=== PATIENT | female | born 1965 | race Caucasian/White ===

== ENCOUNTER 2022-05-10 01:36 | Day surgery (SDC) | payer OTHER, SELFPAY ==
[2022-05-03 17:09] VITALS: BMI 20.1
--- NOTE | 2022-05-03 17:22 | SUR.PREOP ---
Report to the Outpatient Waiting Room, entrance under the green pavilion located off [facility], at time _1200_on date 05/10/22. OR Time: 1400. - You and your visitor will be asked a series of questions to screen for COVID 19 for your protection. - Only one visitor is allowed at this time. - The patient visitor is requested to leave or wait in car when not with patient. - A mask is required within the hospital. Patients may have clear liquids (water, carbonated beverages, clear teas, apple juice) until 3 hours prior to surgery with a maximum of 20 ounces. - No food from midnight until time of surgery - Infants may have breast milk until 4 hours before surgery, infant formula 6 hours prior to surgery. before 11am - Children will be allowed to drink immediately following surgery. If applicable, please bring a bottle or sippy cup to assist with drinking. Juice, water, soda, and popsicles are readily available. For infants on formula, please bring formula the day of surgery. Pacifiers are allowed. Take the following medications with a SIP of water the morning of surgery: ___citalopram Medications to discontinue per physician ___aspirin per dr. epps ( 10 days) Date to take last dose Please no make-up, nail kiswahili, hairspray, perfume, deodorant, or body powder the day of surgery. No jewelry (including any body piercings) or valuables the day of surgery, leave them at home. Please take a shower or bath the night before, or the morning of, surgery with an antibacterial soap. Wear comfortable, loose fitting clothing. Children are encouraged to wear pajamas. - Jewelry must be removed prior to entering the operating room. Rings and piercings that are not removed may be cut off. - The hospital will not accept responsibility for valuables. - Please leave all valuables, including medications, at home the day of surgery. If you are going home after surgery, a licensed otr owner operator truck driver must drive you home. - NO public transportation without another adult. - We recommend that an adult stay with you for 24 hours following discharge. - We also recommend that you do not drive, make important decision, drink alcoholic beverages, or take any drugs that were not prescribed by your health care provider for at least 24 hours after your discharge time. For Pediatric surgeries, we recommend two adults accompany the child home (only one inside the building at this time). Follow any additional instructions given to you from your surgeon. If you or anyone in your household have experienced Covid symptoms in the past week, please notify your surgeon or the nurse liaison at the phone number below for possible testing. Telephone instructions given to __patient and asked if any additional questions and then verbalized understanding. Patient advised to call surgeon office or pre surgery nurse liaison [phone] if any additional questions.
[2022-05-10] VITALS (10 sets, daily range): BP systolic 111–124; BP diastolic 58–76; PULSE 72–101; RESP 12–18; TEMP 36.1–37.4; O2SAT 98–100
--- NOTE | ~2022-05-10 | XR_ITS ---
EXAMINATION: XR fluoroscopy no charge DATE: 05/10/2022 16:18 INDICATION: Lumbar disc herniation. TECHNIQUE: 2 intraoperative fluoroscopic views of the lumbar spine were obtained. I was not present. Fluoroscopy time was 10 seconds. COMPARISON: None. FINDINGS: Lateral views of the lumbar spine demonstrate instruments at L4-L5. IMPRESSION: 1. Instruments at L4-L5. Reviewed, dictated and finalized at location A. IMPRESSION: 1. Instruments at L4-L5.
--- NOTE | 2022-05-10 11:42 | ECG_ITS ---
Measurements Intervals [place] Rate: 67 P: 70 SD: 230 QRS: 54 QRSD: 88 T: 58 QT: 409 QTc: 433 Interpretive Statements SINUS RHYTHM WITH FIRST DEGREE AV BLOCK BASELINE ARTIFACT- V4 ABNORMAL ECG Electronically Signed On 05-10-2022 16:17:04 CDT by Adelso Johnson D.O.
[2022-05-10] MEDS: LACTATED RINGERS 1,000 ML 30 ML IV CONT ×2 (12:50→16:37)
--- NOTE | 2022-05-10 13:42 | SUR.PREOP ---
Discussed delay with patient. Disappointed but understands.
--- NOTE | 2022-05-10 13:48 | WPDANESEPPF ---
Anes - Initial Pre Proc Eval Procedure: Operation Date: 05/10/22 14:00 Proposed Procedures p Right L4-5 Far Lateral Microscopic Lumbar Discectomy - Serjio Ferrari MD Date/Time: 05/10/22 13:48 Surgeon: Serjio Ferrari MD Pre Op Diagnosis: lumbar Disc Herniation Patient Data Age: 57 Gender: F Height: 1.68 m Weight: 57.1 kg Last Vital Signs Temp 37.4 C 05/10/22 12:51 Pulse 72 05/10/22 12:51 Resp 16 05/10/22 12:51 BP 124/76 05/10/22 12:51 Pulse Ox 100 05/10/22 12:51 O2 Del Method Room Air 05/10/22 12:51 Allergies Allergy/AdvReac Type Severity Reaction Status Date / Time levofloxacin [From Levaquin] Allergy Severe Hives Verified 05/10/22 12:06 prochlorperazine Allergy Severe Anxiety Verified 05/10/22 12:06 [From Compazine] codeine Allergy Mild Nausea and Verified 05/10/22 12:06 Vomiting iodine AdvReac Unknown Unknown Verified 05/10/22 12:06 Home Medications Medication Instructions Recorded Confirmed Type aspirin 81 mg tablet 81 mg PO DAILY 05/03/22 05/10/22 History citalopram 40 mg tablet 20 tablet PO DAILY 05/03/22 05/10/22 History lisinopril 5 mg tablet 5 tablet PO HS 05/03/22 05/10/22 History Laboratory Tests 05/10/22 12:39 Blood Type A Positive Antibody Screen Negative Patient hx anesthesia problems: post op nausea/vomiting Family hx anesthesia problems: none Results Review: All pre-operative results and documents have been reviewed as part of the pre-operative evaluation. [facility] Past Medical History Medical History Chronic pain syndrome Depression Hypertension Surgical History Surgical History S/P coil embolization of cerebral aneurysm Social History Social History Smoking status: Never smoker Living arrangements: alone Spiritual care concerns: No Anes - Eval Final PreProcedure Day of Procedure 07/21/22 13:48 Patient weight: normal Heart: regular rate and rhythm Lungs: clear to auscultation Airway: Mallampati scale class II Neurological: alert and oriented Last oral intake: >/= 8 hours ASA classification: III Emergent: no Anesthetic plan: proceed Anesthesia type and monitoring: general ETT and standard monitoring Results Review: All pre-operative results and documents have been reviewed as part of the pre-operative evaluation. Informed Consent: The patient's anesthetic plan and its attendant risks and benefits were discussed with the patient/family/POA. Questions were solicited and answers provided to the satisfaction of the patient/family/POA.
--- NOTE | 2022-05-10 14:35 | PM.IMHP ---
H&P: HPI History of Present Illness Date/Time: 05/10/22 14:35 Chief Complaint: Back and leg pain Narrative: Alyssa is a 57-year-old female with back and lower extremity pain related to an L4-5 foraminal disc herniation who presents for decompression. She has not changed appreciably since we last saw her. She continues to have pain down the right lower extremity. She does not have specific muscle group weakness. She has occasional dermatomal numbness. She is not having any new bowel or bladder disturbances. Review of Systems Review of Systems: Patient denies shortness of breath, cough, fever, chills, nausea, vomiting, weight loss, weight gain, urinary or bowel disturbance, chest pain. She has back and leg pain and stiffness as above. She is otherwise negative on 12 systems except as noted elsewhere. [facility] Past Medical History Medical History Chronic pain syndrome Depression Hypertension Surgical History Surgical History S/P coil embolization of cerebral aneurysm Social History Social History Smoking status: Never smoker Living arrangements: alone Spiritual care concerns: No Meds Home Medications and Allergies Home Medications Medication Instructions Recorded Confirmed Type aspirin 81 mg tablet 81 mg PO DAILY 05/03/22 05/10/22 History citalopram 40 mg tablet 20 tablet PO DAILY 05/03/22 05/10/22 History lisinopril 5 mg tablet 5 tablet PO HS 05/03/22 05/10/22 History Allergies Allergy/AdvReac Type Severity Reaction Status Date / Time levofloxacin [From Levaquin] Allergy Severe Hives Verified 05/10/22 12:06 prochlorperazine Allergy Severe Anxiety Verified 05/10/22 12:06 [From Compazine] codeine Allergy Mild Nausea and Verified 05/10/22 12:06 Vomiting iodine AdvReac Unknown Unknown Verified 05/10/22 12:06 Vital Signs Vital Signs - 24 hr 05/10/22 12:51 Temperature 99.3 F Pulse Rate 72 Respiratory Rate 16 Blood Pressure 124/76 Pulse Oximetry 100 Oxygen Delivery Room Air Exam Narrative: The patient is a normally developed, normal appearing healthy female supine in the hospital bed in no acute distress. She is awake, alert, oriented x3, with good fund of knowledge, recall of events and fluent speech. Her face is symmetrical, her tongue is midline, her pupils are equal and reactive to light, her extraocular movements are intact. There is no upper extremity drift, dysmetria or dyspraxia. Strength is 5/5 in all muscle groups of the bilateral lower extremities to direct confrontation the blink position. Sensation is intact to light touch throughout the lower extremities. Clear to auscultation Regular rate and rhythm Assessment and Plan Assessment and plan (1) Lumbar disc herniation: Code(s): M51.26 - Other intervertebral disc displacement, lumbar region Status: Acute Plan Alyssa is a 57-year-old female with a right L4 radiculopathy related to a foraminal disc herniation at L4-5 on the right. She presents for a right L4-5 far-lateral microscopic lumbar diskectomy. I described to her again this operation, its risks, potential benefits, the operative and postoperative course in detail and answered all of her questions personally. She indicates an understanding and elects to proceed with an operation.
--- NOTE | 2022-05-10 14:38 | WPDHPUPDATE1 ---
History and Physical Update Update Date/Time: 05/10/22 14:38 History and Physical has been reviewed, including an updated exam of the patient. There are NO changes in the patient's condition. Risks, benefits, and alternatives have been discussed and questions answered. Patient agrees to proceed with procedure.
[2022-05-10] MEDS: SCOPOLAMINE 1.5 MG PATCH TRANSDERM (14:52)
[2022-05-10] MEDS: ceFAZolin 2 GM/D5W 50 ML 2 GM/50 ML BAG IVPB (14:55)
[2022-05-10] MEDS: LIDO 1%/EPINEPHRINE 1:100,000 20 ML VIAL 10 ML INFILTRATE (15:38)
--- NOTE | 2022-05-10 16:26 | W.PM.PROC2 ---
Procedure Note - Detailed Date of Procedure 05/10/22 Pre-op Diagnosis lumbar Disc Herniation Post-op Diagnosis Same Procedure Performed Left L4-5 far lateral microscopic lumbar diskectomy Surgeon Serjio Ferrari MD Immigration Attorney Paul Anesthesia General Indications Alyssa is a 57-year-old female with left lower extremity pain related to herniated disc in the foramen at L4-5 on the left who presents for decompression. Findings Herniated disc and foraminal stenosis Description of Procedure The patient was brought to the operating room in the supine position, was sedated, intubated and placed under general anesthesia in routine fashion. She was then turned into the prone position on a Gama frame. The area of operation on her back was examined marked for incision, prepped and draped in routine sterile fashion. Incision was marked over the L4 and L5 spinous processes in the midline. This area was injected with 0.5% lidocaine with [id number] epinephrine. Intravenous antibiotics were given prior to incision. Incision was made with a 10 blade scalpel down to the lumbodorsal fascia. A subperiosteal dissection of the muscle soft tissue within spinous process and lamina at its L4-5 on the left was performed with a subperiosteal elevator and Bovie cautery. A verify x-rays obtained to verify the level of operation. At L4-5 on the left the Midas Reji drill was used to resect the lateral pars and facets of soft contents of the foramen were encountered. Under microscopy the L ligament was lifted and removed piecemeal using Kerrison punches. This exposed dura nerve root below. The nerve was reflected superiorly. The ligament over the disc was incised with an 11 blade scalpel. An Abran curette curved curette and Del Castillo rongeur as well as a nerve hook were used which removed fragments of herniated disc from beneath the ligament. These maneuvers were performed until a nerve hook could be placed proximally and distally to confirm lack of compression. The wound was then copiously irrigated with bacitracin irrigation all bleeding stopped with bipolar and Bovie cautery and Surgiflo. The wound was then closed in layered fashion with 2-0 Vicryl interrupted sutures in the lumbodorsal fascia and Diana's layer. 3-0 Vicryl buried interrupted sutures were placed in the dermis and the skin was closed with a running 4-0 Monocryl subcuticular stitch and dressed with Dermabond and a Telfa and Tegaderm dressing. The patient was turned into the supine position on a hospital bed his lab, from general anesthesia in the operating room was taken to the recovery room in stable condition. There were no immediate complications of this operation. All counts were reported correct in the case. Blood loss was 25 cc. The patient is neurologically at her baseline postoperatively. Estimated Blood Loss 25 IV Fluids 1,000 Complications None Condition Stable Disposition PACU
[2022-05-10] MEDS: fentaNYL CITRATE INJ (*CRX) 100 MCG/2 ML VIAL 25 MCG IV PUSH ×4 (16:52→17:08)
[2022-05-10] MEDS: ACETAMINOPHEN 500 MG TABLET 1000 MG PO (18:13)
[2022-05-10] MEDS: CYCLOBENZAPRINE HCL 5 MG TABLET PO (18:21)
== END 2022-05-10 19:20 | disposition home or self-care (01) ==
PROVIDERS: Visit Provider Neurological Surgery
PROC: (CPT 63005; principal; 2022-05-10 14:00)
DX: M51.26 Other intervertebral disc displacement, lumbar region (principal); I10 Essential (primary) hypertension; G89.4 Chronic pain syndrome; F32.A Depression, unspecified; Z79.82 Long term (current) use of aspirin; Z86.79 Personal history of other diseases of the circulatory system
CPT/HCPCS: 63056; 36415; 86850; 86900; 86901; 93005; 99199; A9270; J0690; J1100; J2250; J2405; J2704; J2710; J3010; J7120